=== PATIENT | female | born 1965 | race Caucasian/White ===

== ENCOUNTER 2021-05-11 07:44 | Day surgery (SDC) | payer OTHER ==
[2021-05-07 14:51] VITALS: BMI 36.3
[2021-05-11 08:04] VITALS: TEMP 97.8
[2021-05-11] MEDS ORDERED: LIDOCAINE HCL 1%, 10 MG/ML (20ML VIAL) ONE (09:05)
[2021-05-11] MEDS ORDERED: BUPIVACAINE HCL/PF 0.25% (2.5MG/ML) 10 ML VIAL ONE (09:05)
[2021-05-11] MEDS ORDERED: MIDAZOLAM HCL 2 MG/2 ML SINGLE DOSE VIAL ONE (09:21)
[2021-05-11] MEDS ORDERED: PROPOFOL 20 ML ONE (09:38)
[2021-05-11 11:03] VITALS: BP 115/69; PULSE 64
== END 2021-05-11 12:30 | disposition home or self-care (01) ==
LOC: FASU 07:44
PROVIDERS: ATTEND Orthopaedic Surgery
PROC: 01N50ZZ Release Median Nerve, Open Approach (ICD-10-PCS; principal; 2021-05-11 09:56)
DX: G56.02 Carpal tunnel syndrome, left upper limb (principal)

== ENCOUNTER 2022-02-12 04:43 | Day surgery (SDC) | payer OTHER ==
[2022-02-11 07:36] VITALS: BMI 34.7
[2022-02-12 11:12] VITALS: TEMP 98
[2022-02-12 11:54] VITALS: BP 115/74; PULSE 70
== END 2022-02-12 12:10 | disposition home or self-care (01) ==
LOC: JASU-ENDO 04:43
PROVIDERS: ATTEND Internal Medicine Gastroenterology
PROC: 0DBP8ZX Excision of Rectum, Via Natural or Artificial Opening Endoscopic, Diagnostic (ICD-10-PCS; 2022-02-12)
PROC: 0DBL8ZX Excision of Transverse Colon, Via Natural or Artificial Opening Endoscopic, Diagnostic (ICD-10-PCS; principal; 2022-02-12 10:00)
DX: K62.1 Rectal polyp (principal); D12.3 Benign neoplasm of transverse colon; K64.8 Other hemorrhoids; K57.30 Diverticulosis of large intestine without perforation or abscess without bleeding
CPT/HCPCS: 88305-TC

== ENCOUNTER 2023-06-20 08:46 | Emergency (ER) | payer OTHER ==
[2023-06-20 08:52] VITALS: BP 158/73; PULSE 71; RESP 18; TEMP 98; BMI 24.7
[2023-06-20] MEDS ORDERED: LACTATED RINGERS SOLUTION 1000 ML INFUS.BAG IV ONE (09:28)
[2023-06-20] MEDS ORDERED: MAG HYDROX/AL HYDROX/SIMETH 30 ML UNIT-DOSE CUP PO ONE (09:28)
[2023-06-20] MEDS ORDERED: ACETAMINOPHEN 1000 MG/100 ML BAG IVPB ONE (09:28)
[2023-06-20] MEDS ORDERED: FAMOTIDINE 20 MG/50 ML IVPB 20 MG/50 ML MG IVPB ONE ×2 (09:28→09:31)
[2023-06-20] MEDS ORDERED: MAG HYDROX/AL HYDROX/SIMETH 30 ML UNIT-DOSE CUP ONE (09:30)
[2023-06-20] MEDS ORDERED: ACETAMINOPHEN INJECTION 100 ML IVPB ONE (09:30)
[2023-06-20 10:07] LABS: EOS % 2.4 % (0-4.5); HEMATOCRIT 44.6 % (32.4-45.2); HEMOGLOBIN 15.2 GM/dL (10.7-15.3); MCH 30.5 pg (25.7-33.7); MEAN CELL VOLUME 89.6 fl (80-96); MEAN PLT VOLUME 8.4 fl (7.5-11.1); MONO % 8.7 % (3.8-10.2); NEUT % 61.9 % (42.8-82.8); PLATELET COUNT 284 10^3/uL (134-434); RBC 4.98 M/mm3 (3.60-5.2); RDW 13.9 % (11.6-15.6); WHITE BLOOD COUNT 8.2 K/mm3 (4.0-10.0)
[2023-06-20 10:15] LABS: POTASSIUM 3.9 mmol/L (3.5-5.1)
[2023-06-20 10:17] LABS: ALBUMIN 3.9 g/dl (3.4-5.0); CALCIUM 9.3 mg/dL (8.5-10.1)
[2023-06-20 10:20] LABS: CREATININE 0.9 mg/dL (0.55-1.3)
[2023-06-20 10:22] LABS: BILIRUBIN,TOTAL 0.5 mg/dL (0.2-1); TOT PROT 7.3 g/dl (6.4-8.2)
== END 2023-06-20 11:52 | disposition home or self-care (01) ==
LOC: JER 08:46
PROC: 3E033GC Introduction of Other Therapeutic Substance into Peripheral Vein, Percutaneous Approach (ICD-10-PCS; principal; 2023-06-20)
PROC: 3E033NZ Introduction of Analgesics, Hypnotics, Sedatives into Peripheral Vein, Percutaneous Approach (ICD-10-PCS; 2023-06-20)
DX: R10.84 Generalized abdominal pain (principal); R19.7 Diarrhea, unspecified; R68.83 Chills (without fever); R63.0 Anorexia; Z87.19 Personal history of other diseases of the digestive system
CPT/HCPCS: 36415; 74177-TC; 80053; 83690; 83735; 85025; 99285-25; Q9967

== ENCOUNTER 2023-08-06 11:46 | Emergency (ER) | payer OTHER ==
[2023-08-06 11:58] VITALS: BP 150/86; PULSE 80; RESP 16; TEMP 98; BMI 30.8
[2023-08-06] MEDS ORDERED: FAMOTIDINE 20 MG/50 ML IVPB 20 MG/50 ML MG IVPB ONE ×2 (12:48→14:44)
[2023-08-06] MEDS ORDERED: MAG HYDROX/AL HYDROX/SIMETH 30 ML UNIT-DOSE CUP PO ONE (12:48)
[2023-08-06] MEDS ORDERED: ACETAMINOPHEN 1000 MG/100 ML BAG IVPB ONE (12:48)
[2023-08-06] MEDS ORDERED: SODIUM CHLORIDE 0.9% 1000 ML INFUS.BAG IV ONE (12:48)
[2023-08-06] MEDS ORDERED: MAG HYDROX/AL HYDROX/SIMETH 30 ML UNIT-DOSE CUP ONE (12:53)
[2023-08-06] MEDS ORDERED: ACETAMINOPHEN INJECTION 100 ML IVPB ONE (12:53)
[2023-08-06 14:01] LABS: EOS % 2.3 % (0-4.5); HEMATOCRIT 40.9 % (32.4-45.2); HEMOGLOBIN 13.5 GM/dL (10.7-15.3); LYMPH % 23.6 % (8-40); MCH 30.4 pg (25.7-33.7); MCHC 32.9 g/dl (32.0-36.0); MEAN CELL VOLUME 92.6 fl (80-96); MEAN PLT VOLUME 7.9 fl (7.5-11.1); MONO % 7.6 % (3.8-10.2); NEUT % 65.5 % (42.8-82.8); PH,URINE 6.5 (5.0-8.0); PLATELET COUNT 306 10^3/uL (134-434); RBC 4.42 M/mm3 (3.60-5.2); RDW 13.9 % (11.6-15.6); URINE APPEARANCE CLEAR; URINE BILIRUBIN NEGATIVE (NEGATIVE); URINE COLOR YELLOW; URINE GLUCOSE (UA) NEGATIVE (NEGATIVE); URINE KETONE NEGATIVE (NEGATIVE); URINE LEUK ESTERASE NEGATIVE (NEGATIVE); URINE NITRITE NEGATIVE (NEGATIVE); URINE PROTEIN NEGATIVE (NEGATIVE); URINE UROBILINOGEN 0.2 mg/dL (0.2-1.0); WHITE BLOOD COUNT 9.6 K/mm3 (4.0-10.0)
[2023-08-06 14:17] LABS: POTASSIUM 4.1 mmol/L (3.5-5.1)
[2023-08-06 14:20] LABS: ALBUMIN 3.5 g/dl (3.4-5.0); CALCIUM 8.8 mg/dL (8.5-10.1)
[2023-08-06 14:22] LABS: CREATININE 0.8 mg/dL (0.55-1.3)
[2023-08-06 14:24] LABS: BILIRUBIN,TOTAL 0.3 mg/dL (0.2-1); TOT PROT 6.6 g/dl (6.4-8.2)
[2023-08-06 14:31] LABS: BLOOD UREA NITROGEN 22.5 mg/dL (7-18)
== END 2023-08-06 16:38 | disposition home or self-care (01) ==
LOC: JER 11:46
PROC: 3E033GC Introduction of Other Therapeutic Substance into Peripheral Vein, Percutaneous Approach (ICD-10-PCS; principal; 2023-08-06)
PROC: 3E033NZ Introduction of Analgesics, Hypnotics, Sedatives into Peripheral Vein, Percutaneous Approach (ICD-10-PCS; 2023-08-06)
DX: R10.13 Epigastric pain (principal); R11.0 Nausea; R10.84 Generalized abdominal pain; R10.31 Right lower quadrant pain; R10.32 Left lower quadrant pain
CPT/HCPCS: 36415; 74177-TC; 80053; 81003; 83690; 84484; 85025; 87086; 93005; 93010; 99285-25

== ENCOUNTER 2023-12-27 15:01 | Emergency (ER) | payer OTHER ==
[2023-12-27 15:21] VITALS: BMI 31.2
[2023-12-27 15:56] LABS: VENOUS BASE EXCESS 0.4 mmol/L (-2-2); VENOUS O2 SATURATION 46.1 % (70-80); VENOUS PH 7.354 (7.310-7.410)
[2023-12-27 15:59] LABS: BASO % 0.9 % (0-2.0); EOS % 1.2 % (0-4.5); HEMATOCRIT 41.9 % (32.4-45.2); HEMOGLOBIN 14.1 GM/dL (10.7-15.3); MCH 30.3 pg (25.7-33.7); MCHC 33.5 g/dl (32.0-36.0); MEAN CELL VOLUME 90.4 fl (80-96); MEAN PLT VOLUME 8.2 fl (7.5-11.1); MONO % 7.2 % (3.8-10.2); NEUT % 58.7 % (42.8-82.8); PLATELET COUNT 276 10^3/uL (134-434); RBC 4.63 M/mm3 (3.60-5.2); RDW 15.4 % (11.6-15.6); WHITE BLOOD COUNT 10.9 K/mm3 (4.0-10.0)
[2023-12-27] MEDS: PROPOFOL 1,000,000 MCG/100 ML VIAL IVPB SCH (16:19)
[2023-12-27] MEDS: PROPOFOL 200 MG/20 ML VIAL IVPUSH ONE (16:20)
[2023-12-27 16:21] LABS: ACTIVATED PTT 28.1 SECONDS (25.2-36.5); INR 1.05 (0.83-1.09); PROTHROMBIN TIME (PATIENT) 12.2 SEC (9.7-13.0)
[2023-12-27 16:30] LABS: POTASSIUM 3.8 mmol/L (3.5-5.1)
[2023-12-27 16:32] LABS: ALBUMIN 3.7 g/dl (3.4-5.0); BLOOD UREA NITROGEN 11.9 mg/dL (7-18); CALCIUM 8.9 mg/dL (8.5-10.1); MAGNESIUM 2.1 mg/dL (1.8-2.4)
[2023-12-27 16:35] LABS: CREATININE 0.8 mg/dL (0.55-1.3)
[2023-12-27 16:37] LABS: BILIRUBIN,TOTAL 0.3 mg/dL (0.2-1); TOT PROT 6.8 g/dl (6.4-8.2)
[2023-12-27 16:40] LABS: N-TERMINAL BNP 307.5 pg/ml (5-125)
[2023-12-27] MEDS ORDERED: niCARdipine HCL 25 MG/10 ML AMPUL IVPB ONE (16:50)
[2023-12-27] MEDS: NICARDIPINE 25 MG in DEXTROSE 5%-WATER - 240 ML IVPB SCH (16:59)
[2023-12-27 18:39] VITALS: BP 110/75; PULSE 95; RESP 16; TEMP 98
== END 2023-12-27 18:39 | disposition short-term general hospital (02) ==
LOC: JER 15:01
DX: R53.1 Weakness (principal); R42 Dizziness and giddiness; R11.10 Vomiting, unspecified; I61.9 Nontraumatic intracerebral hemorrhage, unspecified; Z20.822 Contact with and (suspected) exposure to COVID-19
CPT/HCPCS: 0241U-QW; 36415; 70450-TC; 71045-TC-FY; 80053; 82803; 83735; 83880; 84484; 85025; 85610; 85730; 86850; 86870; 86880; 86900; 86901; 86902; 93005; 93010; 99291